=== PATIENT | female | born 1995 | race African-American/Black ===

== ENCOUNTER 2022-05-11 08:05 | Emergency (ER) | payer MEDICAID, OTHER ==
[~2022-05-11] VITALS: Ht 170.2 cm; Wt 65.3 kg
[2022-05-11 08:57] VITALS: BP 114/60
[2022-05-11] MEDS ORDERED: BENZ100C19 PO (10:18)
[2022-05-11] MEDS ORDERED: LEVOTAB51 PO (10:18)
== END 2022-05-11 10:27 | disposition home or self-care (01) ==
LOC: ER 08:05
DX: T78.40XA Allergy, unspecified, initial encounter (principal); R07.89 Other chest pain; Z20.822 Contact with and (suspected) exposure to COVID-19; Y92.89 Other specified places as the place of occurrence of the external cause
CPT/HCPCS: 36415; 71046; 87426

== ENCOUNTER → 2023-09-29 | Outpatient (CLI) | payer MEDICAID ==
[~2023-09-29] MED LIST: BENZ100C19 PO; LEVOTAB51 PO
== END | disposition home or self-care (01) ==
LOC: LAB 09:16
PROVIDERS: ATTEND Obstetrics & Gynecology
DX: Z34.80 Encounter for supervision of other normal pregnancy, unspecified trimester (principal); Z3A.00 Weeks of gestation of pregnancy not specified
CPT/HCPCS: 36415; 84439; 84443; 86850; 86900; 86901

== ENCOUNTER 2023-12-06 18:12 | Observation (INO) | payer MEDICAID ==
[~2023-12-06] VITALS: Ht 170.2 cm; Wt 81.6 kg
[2023-12-06 19:21] LABS: Urine Bacteria None Seen /hpf (None Seen)
[2023-12-06 19:51] LABS: Urine Blood Negative /uL (Negative); Urine Clarity Clear (Clear); Urine Color Light-Yellow (Yellow); Urine Mucus FEW (None Seen); Urine Protein, UAD Negative (Negative); Urine Specific Gravity 1.019 (1.001-1.035); Urine Urobilinogen 3 mg/dL (Negative); Urine WBC 3 /hpf (0 - 5)
[2023-12-06 19:53] LABS: Basophils # (auto) 0 10 ^3/uL (0-0.2); Basophils % (auto) 0.3 % (0.0-2.0); Eosinophils # (auto) 0.1 10 ^3/uL (0-0.8); Hematocrit 28.9 % (36.0-46.0); Hemoglobin 9.7 g/dL (12.2-16.2); Lymphocytes # (auto) 1.8 10 ^3/uL (0.4-5.4); Lymphocytes % (auto) 28.4 % (10.0-50.0); Mean Corpuscular Hemoglobin 26.9 pg (28.0-32.0); Mean Corpuscular Hgb Conc. 33.5 g/dL (32.0-36.0); Mean Corpuscular Volume 80.2 fL (80.0-100.0); Monocytes # (auto) 0.6 10 ^3/uL (0-1.3); Neutrophils # (auto) 3.8 10 ^3/uL (1.6-8.6); Neutrophils % (auto) 60.3 % (37.0-80.0); Nucleated Red Blood Cells % 0.1 %; Platelet Count (auto) 230 10^3/uL (140-450); Red Blood Cells 3.61 10^6/uL (4.0-5.20); Red Cell Distribution Width 14.4 % (11.8-14.3); White Blood Cell 6.3 10^3/uL (4.4-10.8)
[2023-12-06 20:01] LABS: Protein, Urine 15.4 mg/dL (1-14)
[2023-12-06 20:02] LABS: Vaginal Bacteria Few; Vaginal Clue Cells None Seen; Vaginal Epithelial Cells Moderate; Vaginal Trichomonas Not Present
[2023-12-06 20:04] LABS: Creatinine, Urine 95.91 mg/dL (30.0-125.0); Urine Protein/Creatinine Ratio 0.16
[2023-12-06 20:08] LABS: Albumin 3.8 g/dL (3.2-4.8); Alkaline Phosphatase 59 U/L (46-116); Anion Gap 8 (5-15); Aspartate Aminotransferase 9 U/L (13-40); BUN/Creatinine Ratio 11.8 (10.0-20.0); Blood Urea Nitrogen 8 mg/dL (9-23); Calcium 9.8 mg/dL (8.7-10.4); Carbon Dioxide 24 mmol/L (20-31); Chloride 106 mmol/L (98-107); Glucose 78 mg/dL (74-106); Potassium 3.8 mmol/L (3.5-5.1); Sodium 138 mmol/L (136-145)
[2023-12-06 20:09] LABS: Alanine Aminotransferase < 9 U/L (7-40); Bilirubin, Total 0.5 mg/dL (0.2-1.0); Total Protein 6.5 g/dL (5.7-8.2)
[2023-12-06] MEDS ORDERED: ASPI1TAB20 PO (20:43)
[2023-12-06] MEDS: NALBUPHINE HCL 10 MG/1ml INJECTION IV ONE (22:56)
[2023-12-06] MEDS: LACTATED RINGER'S 1,000 ML IV ONE ×2 (22:57→23:20)
[2023-12-06 23:56] VITALS: BP 108/59; PULSE 84; RESP 16
== END 2023-12-07 03:31 | disposition home or self-care (01) ==
LOC: LDRP 18:12
PROVIDERS: ADMIT Obstetrics & Gynecology; ATTEND Obstetrics & Gynecology
DX: O99.891 Other specified diseases and conditions complicating pregnancy (principal); N13.2 Hydronephrosis with renal and ureteral calculous obstruction; O99.013 Anemia complicating pregnancy, third trimester; D50.9 Iron deficiency anemia, unspecified; O26.893 Other specified pregnancy related conditions, third trimester; R51.9 Headache, unspecified; Z3A.28 28 weeks gestation of pregnancy
CPT/HCPCS: 36415; 59025; 76700; 76815; 80053; 81001; 81002; 82570; 84156; 84550; 85025; 87210; 94760; 96360; 96361; 96374; J2300

== ENCOUNTER 2024-01-20 16:59 | Observation (INO) | payer MEDICAID ==
[~2024-01-20 16:59] MED LIST changes: +ASPI1TAB20 PO; -BENZ100C19 PO; -LEVOTAB51 PO
[2024-01-20] MEDS ORDERED: PREN-96 PO (17:17)
[2024-01-20] MEDS ORDERED: FERR-7 PO (17:17)
--- NOTE | 2024-01-20 19:46 | DVHDS2 ---
Physician Discharge Progress N Final Diagnosis: IUP 35 wk, false labor Nephrolithiasis Operations or Procedures: Operations or Procedures NST Commentary: Commentary Labor check, not in labor Condition on Discharge: Stable Disposition: Home Discharge Instructions: Diet: Regular Activity: No Restrictions, As Tolerated Follow Up/Referral: as scheduled Medications: N/A Follow Up Care: Discharge Statement: "Patient was advised to return to the ER or call 911 if any headaches, dizziness, shortness of breath, chest pain, abdominal pain, bleeding, fevers, or worsening of medical condition. Patient was counseled about treatment plan, medications, possible side effects, patientverbalized understanding. All questions were answered to the best of my ability. This discharge took greater then 30 minutes in planning, reviewing documentation, counseling the patient, and discussing with other team members." LEON DYE DO Jan 20, 2024 19:46
== END 2024-01-20 17:55 | disposition home or self-care (01) ==
LOC: LDRP 16:59
PROVIDERS: ADMIT Obstetrics & Gynecology; ATTEND Obstetrics & Gynecology
DX: O47.03 False labor before 37 completed weeks of gestation, third trimester (principal); O26.833 Pregnancy related renal disease, third trimester; N20.0 Calculus of kidney; Z3A.35 35 weeks gestation of pregnancy; Z79.899 Other long term (current) drug therapy; Z98.890 Other specified postprocedural states
CPT/HCPCS: 59025; 81002; 94760; G0378

== ENCOUNTER → 2024-01-25 | Outpatient (CLI) | payer MEDICAID ==
[~2024-01-25] MED LIST changes: +FERR-7 PO; +PREN-96 PO
[2024-01-25 14:31] LABS: Basophils # (auto) 0 10 ^3/uL (0-0.2); Basophils % (auto) 0.2 % (0.0-2.0); Eosinophils # (auto) 0.1 10 ^3/uL (0-0.8); Eosinophils % (auto) 1.4 % (0.0-7.0); Hematocrit 33.2 % (36.0-46.0); Hemoglobin 11.2 g/dL (12.2-16.2); Lymphocytes # (auto) 1.7 10 ^3/uL (0.4-5.4); Lymphocytes % (auto) 23.4 % (10.0-50.0); Mean Corpuscular Hemoglobin 26.9 pg (28.0-32.0); Mean Corpuscular Hgb Conc. 33.6 g/dL (32.0-36.0); Mean Corpuscular Volume 80.1 fL (80.0-100.0); Monocytes # (auto) 0.5 10 ^3/uL (0-1.3); Monocytes % (auto) 7.4 % (0.0-12.0); Neutrophils # (auto) 4.8 10 ^3/uL (1.6-8.6); Neutrophils % (auto) 67.6 % (37.0-80.0); Nucleated Red Blood Cells % 0.3 %; Platelet Count (auto) 252 10^3/uL (140-450); Red Blood Cells 4.15 10^6/uL (4.0-5.20); Red Cell Distribution Width 17.7 % (11.8-14.3); White Blood Cell 7.1 10^3/uL (4.4-10.8)
[2024-01-25 14:35] LABS: Wright Stain Ready for Review
[2024-01-25 14:51] LABS: Folate (Folic Acid) 17.44 ng/mL (>5.38)
== END | disposition home or self-care (01) ==
LOC: LAB 13:57
PROVIDERS: ATTEND Obstetrics & Gynecology
DX: Z34.80 Encounter for supervision of other normal pregnancy, unspecified trimester (principal); Z3A.00 Weeks of gestation of pregnancy not specified
CPT/HCPCS: 36415; 82607; 82668; 82746; 83540; 85025; 85045

== ENCOUNTER 2024-02-02 20:36 | Observation (INO) | payer MEDICAID ==
[~2024-02-02] VITALS: Ht 170.2 cm; Wt 90.7 kg
--- NOTE | 2024-02-03 01:01 | DVHDS2 ---
Physician Discharge Progress N Final Diagnosis: IUP att 37weeks Not In Labor Other Interventions Other Interventions S: 28yo G7,5015 with IUP at 37w 0d presents to [facility] with report of contractions that started 30mins ago Reports normal movements, no LOF, or vaginal bleeding, no VALLEJO or vision changes. O: PE: A&O x3, NAD, well groomed. pleasant. Appropriate and normal mood and affect Afebrile, VSS Respiration unlabored Heart and lungs sounds: normal Abdomen: Gravid, non-tender to palpation. Cephalic presentation Extremities: No edema VE: 2/40%/-3 posterior, medium in consistency; no cervical change in 2 hours after one hour of ambulation UA: Normal; Neg for nitrites and leukocyte UC: irregular, mild to palpation FHR baseline 140bpm with moderate variability and accelerations, no deceleration A: IUP @ 37w Not In labor Category 1 P: Discharge home Reviewed [facility], 3rd trimester emergency signs and symptoms; return to hospital if any Condition on Discharge: Stable Disposition: Home Discharge Instructions: Diet: Regular Activity: No Restrictions, As Tolerated Medications: None Follow Up Care: Discharge Statement: "Patient was advised to return to the ER or call 911 if any headaches, dizziness, shortness of breath, chest pain, abdominal pain, bleeding, fevers, or worsening of medical condition. Patient was counseled about treatment plan, medications, possible side effects, patientverbalized understanding. All questions were answered to the best of my ability. This discharge took greater then 30 minutes in planning, reviewing documentation, counseling the patient, and discussing with other team members." TORO SCHULTZ CNM Feb 03, 2024 01:01
== END 2024-02-02 23:52 | disposition home or self-care (01) ==
LOC: LDRP 20:36
PROVIDERS: ADMIT Obstetrics & Gynecology; ATTEND Obstetrics & Gynecology
DX: O62.9 Abnormality of forces of labor, unspecified (principal); Z3A.37 37 weeks gestation of pregnancy; Z79.899 Other long term (current) drug therapy; Z98.890 Other specified postprocedural states
CPT/HCPCS: 59025; 81002; 94760; G0378

== ENCOUNTER 2024-02-17 04:06 | Observation (INO) | payer MEDICAID ==
[~2024-02-17] VITALS: Ht 170.2 cm; Wt 92.1 kg
--- NOTE | 2024-02-18 00:34 | DVHDS2 ---
Physician Discharge Progress N Final Diagnosis: Term , false labor Operations or Procedures: Operations or Procedures NST Commentary: Commentary Labor check, cervix 2cm not in active labor NST reactive, FHR Category 1 Condition on Discharge: Stable Disposition: Home Discharge Instructions: Diet: Regular Activity: No Restrictions, As Tolerated Follow Up/Referral: Return to [facility] tomorrow morning per Dr. Dye. Medications: Take all prescribed medications as directed. Follow Up Care: Discharge Statement: "Patient was advised to return to the ER or call 911 if any headaches, dizziness, shortness of breath, chest pain, abdominal pain, bleeding, fevers, or worsening of medical condition. Patient was counseled about treatment plan, medications, possible side effects, patientverbalized understanding. All questions were answered to the best of my ability. This discharge took greater then 30 minutes in planning, reviewing documentation, counseling the patient, and discussing with other team members." LEON DYE DO Feb 18, 2024 00:34
== END 2024-02-17 21:17 | disposition home or self-care (01) ==
LOC: LDRP 19:23
PROVIDERS: ADMIT Obstetrics & Gynecology; ATTEND Obstetrics & Gynecology
DX: O47.9 False labor, unspecified (principal); Z3A.35 35 weeks gestation of pregnancy; Z79.899 Other long term (current) drug therapy; Z98.890 Other specified postprocedural states
CPT/HCPCS: 59025; 81002; 94760; G0378

== ENCOUNTER 2024-02-18 07:28 | Inpatient (IN) | payer MEDICAID ==
[~2024-02-18] VITALS: Ht 170.2 cm; Wt 92.1 kg
[2024-02-18] MEDS ORDERED: BUTORPHANOL TARTRATE 2 MG/1 ML VIAL IV PRN ×2 (07:45)
[2024-02-18] MEDS ORDERED: LACTATED RINGER'S 1,000 ML IV SCH (07:45)
[2024-02-18] MEDS ORDERED: LIDOCAINE 2%HCL (LOCAL ANESTH.) INJ 20ML MDV IJ ONE (07:45)
[2024-02-18 08:19] LABS: Basophils # (auto) 0 10 ^3/uL (0-0.2); Eosinophils # (auto) 0 10 ^3/uL (0-0.8); Eosinophils % (auto) 0.7 % (0.0-7.0); Lymphocytes # (auto) 1.4 10 ^3/uL (0.4-5.4); Mean Corpuscular Volume 79.7 fL (80.0-100.0); Monocytes # (auto) 0.5 10 ^3/uL (0-1.3); Neutrophils # (auto) 4.3 10 ^3/uL (1.6-8.6); Red Cell Distribution Width 17.7 % (11.8-14.3); White Blood Cell 6.2 10^3/uL (4.4-10.8)
[2024-02-18 08:22] LABS: Urine Bacteria None Seen /hpf (None Seen)
[2024-02-18 08:23] LABS: Basophils % (auto) 0.4 % (0.0-2.0); Hematocrit 31.4 % (36.0-46.0); Hemoglobin 10.5 g/dL (12.2-16.2); Lymphocytes % (auto) 22.4 % (10.0-50.0); Mean Corpuscular Hemoglobin 26.7 pg (28.0-32.0); Mean Corpuscular Hgb Conc. 33.5 g/dL (32.0-36.0); Monocytes % (auto) 7.7 % (0.0-12.0); Neutrophils % (auto) 68.8 % (37.0-80.0); Nucleated Red Blood Cells % 0.2 %; Platelet Count (auto) 268 10^3/uL (140-450); Red Blood Cells 3.95 10^6/uL (4.0-5.20)
--- NOTE | 2024-02-18 08:24 | DVHHP2 ---
OB CC & HPI Date Date of Admission: Feb 18, 2024 Patient Identification: : 6 Para: 5 EDC: Feb 23, 2024 EGA: 39.2 Chief Complaints: Reason for admission: induction of labor History of Present Complaints NOrmal , elective labor induction 39+ wk Good PNL care, uncomplicated Past Medical History Cardiac: No pertinent Hx Pulmonary: No pertinent Hx Central Nervous System: No pertinent Hx GI: No pertinent Hx Hemotology/Oncology: No pertinent Hx Hepatobiliary: No pertinent Hx Psychiatric: No pertinent Hx Musculoskeletal: No pertinent Hx Rheumotologic: No pertinent Hx Infectious Disease: No peritnent Hx ENT: No pertinent Hx Renal/: No pertinent Hx Endocrine: No pertinent Hx Dermatology: No pertinent Hx Past Surgical History: No pertinent Hx OB History OB History Care: Good Care Ultrasounds: Normal mid trimester US Obstetrical Complications: None Medical Complications: None Allergies: Coded Allergies: NO KNOWN ALLERGIES (Unverified , 05/11/22) Home Meds Active Scripts Aspirin (Aspir-81) 81 Mg Tab, 1 TAB PO DAILY, #90 TAB 3 Refills Prov:JACIEL KLINE CNM 12/06/23 Reported Medications Ferrous Sulfate (Iron) 325 Mg Tab, 325 MG PO, TAB 01/20/24 Vit W/ Ferrous Fumara ( One Daily) Daily Tab, 1 TAB PO DAILY, #90 TAB 3 Refills 01/20/24 Current Medications Current Medications Medications (Trade) Dose Ordered Sig/Helder Route PRN Reason Start Time Stop Time Status Last Admin Lactated Ringer's 1,000 ml @ 125 mls/hr Q8H IV 02/18/24 07:45 UNV Witch Nelly (Tucks) 1 pad PRN PRN TOP PERINEAL AREA DISCOMFORT 02/18/24 07:45 UNV Sodium Lauryl Sulfate (Phisoderm) 240 ml PRN PRN TOP PERINEAL AREA DISCOMFORT 02/18/24 07:45 UNV Benzocaine (Dermoplast) 1 applic PRN PRN TOP PERINEAL AREA DISCOMFORT 02/18/24 07:45 UNV Butorphanol Tartrate (Stadol Injection) 1 mg Q4HPRN PRN IV MODERATE PAIN (4-6 PAIN SCALE) 02/18/24 07:45 UNV Butorphanol Tartrate (Stadol Injection) 2 mg Q4HPRN PRN IV SEVERE PAIN (7-10 PAIN SCALE) 02/18/24 07:45 UNV Lidocaine HCl (Xylocaine) 20 ml ONCE PRN IJ PERINEAL AREA DISCOMFORT 02/18/24 07:45 UNV Family & Social History Family/Social History Blood Type: O+ Rubella: immune RPR/VDRL: Negative GBS Status: Negative HBsAG: Negative Review of Systems Constitutional: No symptom reported Ears, Nose, & Throat: No symptom reported Eyes: No symptom reported Pulmonary/Respiratory: No symptom reported Cardiovascular: No symptom reported Gastrointestinal: No symptom reported Genitourinary: No symptom reported Musculoskeletal: No symptom reported Skin: No symptom reported Psychiatric: No symptom reported Endocrine: No symptom reported Hemotologic/Lymphatic: No symptom reported OB Admission Exam Physical Exam HEENT: TMs Normal, Fontanelles Normal, Nasal Mucosa Normal, Eyes non-injected, Oropharynx Normal, PERRLA, Moist Membranes, EOMI Heart: Rhythm Normal Lungs: Clear Abdomen: Non tender Extremities: Normal Reflexes: Normal Cervical Dilatation: 3cm Effacement: Other (60) Station: -2 Membranes: Intact Heart Rate: 150's Accelerations: Accelerations Present Decelerations: No Decelerations Short Term Variability: Present Intermediate Variability: Average (6-25) Contractions on Admission: 6-10 Minutes Apart Intensity: Mild OB Plan Plan Admitting Diagnosis: Term IUP 39+ w, Elective labor Induction GBS neg Induction Methd: Misoprostol protocol Other Plan: Pitocin as needed Labor plan and delivery discussed w/ patient informed consent obtained LEON DYE DO Feb 18, 2024 08:24
[2024-02-18 08:35] LABS: Albumin 3.8 g/dL (3.2-4.8); Alkaline Phosphatase 97 U/L (46-116); Anion Gap 9 (5-15); Calcium 9.6 mg/dL (8.7-10.4); Carbon Dioxide 22 mmol/L (20-31); Glucose 84 mg/dL (74-106); INR 0.93 (0.9-1.15); Partial Thromboplastin Time 23.1 SEC (24.5-34.5); Potassium 3.5 mmol/L (3.5-5.1); Prothrombin Time 9.9 sec (9.3-11.8); Sodium 139 mmol/L (136-145)
[2024-02-18 08:36] LABS: Bilirubin, Total 0.7 mg/dL (0.2-1.0); Total Protein 6.6 g/dL (5.7-8.2)
[2024-02-18 08:41] LABS: Alanine Aminotransferase < 9 U/L (7-40); Aspartate Aminotransferase 13 U/L (13-40); BUN/Creatinine Ratio 8.2 (10.0-20.0); Blood Urea Nitrogen < 5 mg/dL (9-23); Chloride 108 mmol/L (98-107)
[2024-02-18] MEDS ORDERED: miSOPROStol 50 MCG per PRE-CUT 1/2 TAB PO PRN (08:45)
[2024-02-18 08:51] LABS: Urine Blood Negative /uL (Negative); Urine Clarity Clear (Clear); Urine Color Light-Yellow (Yellow); Urine Mucus FEW (None Seen); Urine Protein, UAD Negative (Negative); Urine Specific Gravity 1.013 (1.001-1.035); Urine Urobilinogen Normal (Negative); Urine WBC 1 /hpf (0 - 5); Urine pH 6.5 (5.0-9.0)
[2024-02-18 09:00] LABS: Amphetamine Screen, Urine Neg (NEGATIVE); Barbiturate Scree,Urine Neg (NEGATIVE); Benzodiazephine Screen, Urine Neg (NEGATIVE); Cannabinoid Screen, Urine Neg (NEGATIVE); Cocaine Screen, Urine Neg (NEGATIVE); Opiate Scree,Urine Neg (NEGATIVE); Phencyclidine Screen, Urine Neg (NEGATIVE)
[2024-02-18] MEDS: LACT. RINGERS/OXYTOCIN 20UNITS 1,000 ML IV SCH (10:47)
[2024-02-18] MEDS: ONDANSETRON HCL 4 MG/2 ML VIAL IV PRN (12:31)
[2024-02-18] MEDS: NALBUPHINE HCL 10 MG/1ml INJECTION IV PRN (12:32)
--- NOTE | 2024-02-18 16:50 | LDN2 ---
Labor and Delivery Note Date 02/18/24 Age 28 6 Para 6 EGA Term Diagnosis Term , delivered s/p induction of labor Vaginal Delivery: VTX Vacuum Assisted: No Placenta: Spontaneous Sex: Female Weight Pending Apgars 8/9 Amniotic Fluid: Meconium Stained, Thin Anesthesia None Episiotomy: No Repaired with N/A no lacerations EBL 50 mL Labs Blood Bank 02/18/24 08:00: Blood Type O POSITIVE Complications None Comments/Significant Med Chava uncomplicated LEON DYE DO Feb 18, 2024 16:50
[2024-02-18] MEDS: LACT. RINGERS/OXYTOCIN 20UNITS 500 ML IV ONE ×2 (18:02→18:03)
[2024-02-18] MEDS: IBUPROFEN 600 MG TAB PO PRN (18:42)
[2024-02-18] MEDS: ACETAMINOPHEN 325 MG TAB PO PRN (18:43)
[2024-02-18 19:20] VITALS: BP 112/58; PULSE 87; RESP 16; TEMP 97.9; O2SAT 95
[2024-02-18] MEDS ORDERED: HYDROcodone-ACET 5/325MG TAB PO PRN (20:30)
[2024-02-18] MEDS: HYDROcodone-ACET 5/325MG TAB PO PRN (21:06)
[2024-02-18 23:00] VITALS: BP 108/58; PULSE 85; RESP 14; TEMP 98; O2SAT 98
[2024-02-19] MEDS: WITCH HAZEL-GLYCERIN PAD TOP PRN (01:31)
[2024-02-19] MEDS: PHISODERM TOP SOLN 240ML BTL TOP PRN (01:31)
[2024-02-19] MEDS: DERMOPLAST 60ML BOTTLE TOP PRN (01:31)
[2024-02-19 03:30] VITALS: BP 118/62; PULSE 83; RESP 14; TEMP 98; O2SAT 98
[2024-02-19 07:00] VITALS: BP 115/66; PULSE 94; RESP 20; TEMP 98.1; O2SAT 99
--- NOTE | 2024-02-19 07:07 | DVHPN2 ---
Progress Note Date Seen: Feb 19, 2024 Subjective PPD#1 s/p , no complications Denies any pain, lochia mild. well vital signs Vital Sign Date Time Temp Pulse Resp B/P (MAP) Pulse Ox O2 Delivery O2 Flow Rate FiO2 02/19/24 03:30 98.0 83 14 118/62 (80) 98 98.0 Total Intake and Output 02/18/24 02/18/24 02/19/24 15:00 23:00 07:00 Output Total 300 ml 300 ml Balance -300 ml -300 ml medications Current Medications Medications Dose Ordered Sig/Helder Route Start Time Stop Time Status Last Admin Dose Admin Lactated Ringer's 1,000 ml @ 125 mls/hr Q8H IV 02/18/24 07:45 Janneth Villegas 1 pad PRN PRN TOP 02/18/24 07:45 02/19/24 01:31 1 PAD Sodium Lauryl Sulfate 240 ml PRN PRN TOP 02/18/24 07:45 02/19/24 01:31 240 ML Benzocaine 1 applic PRN PRN TOP 02/18/24 07:45 02/19/24 01:31 1 APPLIC Oxytocin 1,000 ml @ 6 ml/hr Q24H IV 02/18/24 08:45 02/18/24 10:47 6 ML/HR Ondansetron HCl 4 mg Q4HPRN PRN IV 02/18/24 12:15 02/18/24 12:31 4 MG Ibuprofen 600 mg Q6HP PRN PO 02/18/24 17:00 02/18/24 18:42 600 MG Acetaminophen 650 mg Q4HP PRN PO 02/18/24 17:00 02/18/24 18:43 650 MG Acetaminophen/ Hydrocodone Bitart 1 tab Q4HPRN PRN PO 02/18/24 20:30 Acetaminophen/ Hydrocodone Bitart 2 tab Q4HPRN PRN PO 02/18/24 20:30 02/19/24 01:32 2 TAB laboratory and microbiology Laboratory Tests 02/18/24 08:00 Test 02/18/24 08:00 Range/Units Serum Glucose 84 74-106 mg/dL Objective O: AFVSS Chest: heart and lung sounds normal. Abd soft, non-tender, fundus firm, BS, no rebound or guarding, Ext Neg Homans, Non-tender, edema Lochia - minimal Labs Reviewed Assessment/Plan PPD#1 s/p , uncomplicated Continue current care D/C planning Plan discussed with: Patient LEON DYE DO Feb 19, 2024 07:07
[2024-02-19] MEDS ORDERED: IBU600T PO (07:08)
--- NOTE | 2024-02-19 07:09 | DVHDS2 ---
Physician Discharge Progress N Final Diagnosis: Term , delivered, uncomplicated Operations or Procedures: Operations or Procedures Induction of labor with uncomplicated Commentary: Commentary Normal labor and delivery Normal course Condition on Discharge: Stable Disposition: Home Discharge Instructions: Diet: Regular Activity: Light activity Activity comment: Pelvic rest x 6 weeks Follow Up/Referral: 2 wk OB clinic Medications: Ibuprofen, Iron BID Follow Up Care: Discharge Statement: "Patient was advised to return to the ER or call 911 if any headaches, dizziness, shortness of breath, chest pain, abdominal pain, bleeding, fevers, or worsening of medical condition. Patient was counseled about treatment plan, medications, possible side effects, patientverbalized understanding. All questions were answered to the best of my ability. This discharge took greater then 30 minutes in planning, reviewing documentation, counseling the patient, and discussing with other team members." LEON DYE DO Feb 19, 2024 07:09
[2024-02-19 11:00] VITALS: BP 109/56; PULSE 91; RESP 12; TEMP 98.7; O2SAT 98
[2024-02-19 15:30] VITALS: BP 107/56; PULSE 83; RESP 18; TEMP 98.1; O2SAT 97
[2024-02-20 08:06] LABS: RPR Non Reactive (Non Reactive)
[2024-02-21 07:07] LABS: Treponema Pallidum Ab LC Non Reactive (Non Reactive)
== END 2024-02-19 17:45 | disposition home or self-care (01) | DRG 560 ==
LOC: LDRP 07:28
PROVIDERS: ADMIT Obstetrics & Gynecology; ATTEND Obstetrics & Gynecology
PROC: 10E0XZZ Delivery of Products of Conception, External Approach (ICD-10-PCS; principal; 2024-02-18)
DX: O77.0 Labor and delivery complicated by meconium in amniotic fluid (principal); Z37.0 Single live birth; Z3A.39 39 weeks gestation of pregnancy
CPT/HCPCS: 36415; 59409; 80053; 80307; 81001; 85025; 85610; 85730; 86592; 86780; 86803; 86850; 86900; 86901; 94760; 96360; 96361; 96365; 96366; 96374; 96375; G0378; J2405; J2590

== ENCOUNTER 2025-02-27 08:39 | Emergency (ER) | payer MEDICAID ==
[~2025-02-27] VITALS: Ht 170.2 cm; Wt 77.8 kg
[~2025-02-27 08:39] MED LIST changes: -ASPI1TAB20 PO; +IBU600T PO
--- NOTE | 2025-02-27 08:56 | ED.PDOC ---
HAND REAMER HPI Comments A 29 YEAR OLD FEMALE PRESENTS TO THE ED WITH COMPLAINT OF VAGINAL DISCHARGE. PATIENT STATES SHE HAS BEEN EXPERIENCING VAGINAL DISCHARGE THAT IS WHITE IN COLOR FOR THE PAST 2 DAYS. PATIENT REPORTS SHE HAS ALSO HAD MILD DISCOMFORT WHEN URINATING. PATIENT DENIES HEMATURIA, FLANK PAIN, FEVER, CHILLS, SHORTNESS OF BREATH, CHEST PAIN, ABDOMINAL PAIN, NAUSEA, VOMITING, HEADACHE, OR OTHER COMPLAINTS. NO OTHER SYMPTOMS OR MODIFYING FACTORS AT THIS TIME. PATIENT IS ALERT, ORIENTED X 4, AND HAS STEADY GAIT. Chief Complaint: Vaginal Discharge Time Seen by MD: 08:44 Reviewed Notes: Nurses Notes, Medications, Allergies Allergies: Coded Allergies: NO KNOWN ALLERGIES (Unverified , 05/11/22) Home Meds Active Scripts Doxycycline (Monohydrate) (Doxycycline) 100 Mg Cap, 100 MG PO BID, #20 CAP Prov:CLAUDIA TOVAR 02/27/25 Metronidazole (Flagyl) 500 Mg Tab, 1 TAB PO TID, #21 TAB Prov:CLAUDIA TOVAR 02/27/25 Ibuprofen Micronized (MOTRIN TABLET) 600 Mg Tb, 600 MG PO Q6HP PRN, #30 TAB Prov:LEON DYE DO 02/19/24 Reported Medications Ferrous Sulfate (Iron) 325 Mg Tab, 325 MG PO, TAB 01/20/24 Vit W/ Ferrous Fumara ( One Daily) Daily Tab, 1 TAB PO DAILY, #90 TAB 3 Refills 01/20/24 Information Source: Patient Mode of Arrival: Ambulatory Timing: Days Prehospital treatment: None Severity: Moderate Vaginal Discharge: White Vaginal Lesions: None Vaginal Mass: None Onset Of Mass/Bleeding: Spontaneous Sexual Activity: Sexually Active Control: None Blood Type: Unknown Symptoms of Possible : None Associated Signs and Symptoms: Vaginal Discharge Past Medical History PAST MEDICAL HISTORY: Denies Surgical History: Denies all surgeries AUTOMATIC TOE LASTER History: No Pertinent AUTOMATIC TOE LASTER History Family History Family History: Reviewed,noncontributory to illness, No family hx of Cancer, No family hx of DM, No family hx of Heart diogo, No family hx of HTN, No family hx ofKidney diogo, No family hx of Liver diogo, No family hx of Lung diogo, No family hx of Stroke Social History Smoker: Non-Smoker Alcohol: Denies ETOH Use Drugs: Denies Drug Use Lives In: Home Constitutional: denies: chills, diaphoresis, fatigue, fever, malaise, sweats, weakness, others EENTM: denies: blurred vision, double vision, ear bleeding, ear discharge, ear drainage, ear pain, ear ringing, eye pain, eye redness, hearing loss, mouth pain, mouth swelling, nasal discharge, nose bleeding, nose congestion, nose pain, photophobia, tearing, throat pain, throat swelling, voice changes, others Respiratory: denies: cough, hemoptysis, orthopnea, SOB at rest, shortness of breath, SOB with excertion, stridor, wheezing, others Cardiovascular: denies: chest pain, dizzy spells, diaphoresis, Dyspnea on exertion, edema, irregular heart beat, left arm pain, lightheadedness, palpitations, PND, syncope, others Gastrointestinal: denies: abdomen distended, abdominal pain, blood streaked bowels, constipated, diarrhea, dysphagia, difficulty swallowing, hematemesis, melena, nausea, poor appetite, poor fluid intake, rectal bleeding, rectal pain, vomiting, others Genitourinary: reports: vagina discharge; denies: abnormal vagina bleeding, burning, dyspareunia, dysuria, flank pain, frequency, hematuria, incontinence, pain, , urgency, others Neurological: denies: dizziness, fainting, headache, left sided numbness, left sided weakness, numbness, paresthesia, pre-existing deficit, right sided numbness, right sided weakness, seizure, speech problems, tingling, tremors, weakness, others Musculoskeletal: denies: back pain, gout, joint pain, joint swelling, muscle pain, muscle stiffness, neck pain, others Integumetry: denies: bruises, change in color, change in hair/nails, dryness, laceration, lesions, lumps, rash, wounds, others Allergic/Immunocompromised: denies: Difficulty Healing, Frequent Infections, Hives, Itching, others Hematologic/Lymphatic: denies: anemia, blood clots, easy bleeding, easy bruising, swollen glands, others Endocrine: denies: excessive hunger, excessive sweating, excessive thirst, excessive urination, flushing, intolerance to cold, intolerance to heat, unexplained weight gain, unexplained weight loss, others Psychiatric: denies: anxiety, bipolar disorder, depression, hopeless, panic disorder, schizophrenia, sleepless, suicidal, others All Other Systems: Reviewed and Negative Physical Exam General Appearance: No Apparent Distress, Normal HEENT: Normal ENT Inspection, PERRL/EOMI, Pharynx Normal, TMs Normal Neck: Full Range of Motion, Non-Tender, Normal, Normal Inspection Respiratory: Chest Non-Tender, Lungs Clear, No Accessory Muscle Use, No Respiratory Distress, Normal Breath Sounds Cardiovascular: No Edema, No JVD, No Murmur, No Gallop, Normal Peripheral Pulses, Regular Rate/Rhythm Breast Exam: Deferred Gastrointestinal: No Organomegaly, Non Tender, No Pulsatile Mass, Normal Bowel Sounds, Soft Genitalia: Deferred Pelvic: Discharge (WHITE AND YELLOW VAGINAL DISCHARGE, NO VAGINAL SKIN RASH AND OPEN WOUND. ), Normal External Exam Rectal: Deferred Extremities: No calf tenderness, Normal capillary refill, Normal inspection, Normal range of motion, Non-tender, No pedal edema Musculoskeletal : Apperance: Normal Neurologic: Alert, vendor management associate II-XII nml as Tested, No Motor Deficits, Normal Affect, Normal Mood, No Sensory Deficits Cerebellar Function: Normal Reflexes: Normal Skin: Dry, Normal Color, Warm Peripheral Pulses: 2+ carotid (R), 2+ carotid (L) Lymphatic: No Adenopathy Was a procedure done? Was a procedure done?: No Differential Diagnosis (AUTOMATIC TOE LASTER) Vaginal Bleeding: UTI, Vaginitis, N/A Mass / Lesion: N/A Vaginal Discharge: UTI, Vaginitis - Bacterial, Vaginitis - Candidal, Vaginitis - Trichomonas X-Ray, Labs, Meds, VS Vital Signs Date Time Temp Pulse Resp B/P (MAP) Pulse Ox O2 Delivery O2 Flow Rate FiO2 02/27/25 08:41 98.1 90 18 119/61 98 98.1 Lab Test 02/27/25 08:54 02/27/25 08:49 Range/Units Urine Color Yellow Yellow Urine Clarity Hazy H Clear Urine pH 6.0 5.0-9.0 Urine Specific [place] 1.030 1.001-1.035 Urine Protein 1+ H Negative Urine Ketones Negative Negative Urine Blood Trace H Negative /uL Urine Nitrite Negative Negative Urine Bilirubin Negative Negative Urine Urobilinogen Normal Negative mg/dL Urine Leukocyte Esterase 3+ Negative /uL Urine RBC 68 0 - 4 /hpf Urine Microscopic WBC 48 H 0-5 /HPF Urine Squamous Epithelial Cells Mod <5 /hpf Urine Bacteria Few H None Seen /hpf Urine Mucus Few None Seen Urine Glucose Normal Normal mg/dL Chlamydia trachomatis (KATHY) Pending Neisseria gonorrhoeae (KATHY) Pending Vaginal WBC (Wet Prep) Many Vaginal RBC (Wet Prep) Few Vaginal Epithelial Cells (Wet Prep) Moderate Vaginal Bacteria (Wet Prep) Moderate Vaginal Trichomonas (Wet Prep) Present Vaginal Yeast (Wet Prep) None seen Vaginal Clue Cells (Wet Prep) None seen Current Medications Medications (Trade) Dose Ordered Sig/Helder Route Start Time Stop Time Status Last Admin Ceftriaxone Sodium (Rocephin) 1,000 mg ONCE ONCE IM 02/27/25 09:30 02/27/25 09:31 DC 02/27/25 09:44 X-Ray, Labs, Meds, VS Comment EXTERNAL MEDICAL RECORDS REVIEWED: [NONE] INDEPENDENT HISTORIANS: [NONE] SOCIAL DETERMINANTS OF HEALTH: [NONE] LABS ORDERED: UA, WET MOUNT REVIEWED AND INTERPRETED RESULTS: WM WBC BENDING, WM BACTERIA MODERATE, TRICHOMONAS PRESENT, LEUKOCYTES 3+ IMAGING ORDERED: NONE TREATMENTS ORDERED: ROCEPHIN 1G IM PROCEDURES PERFORMED: NONE CRITICAL CARE TIME: NONE I HAVE DISCUSSED THE PATIENT WITH THE ATTENDING PHYSICIAN DR. KELLOGG AND HE AGREES WITH THE PATIENT'S PLAN OF CARE AND DISPOSITION. BASED ON HISTORY OF PRESENT ILLNESS, AND PHYSICAL EXAM, PATIENT WILL BE DISCHARGED HOME. DISCUSSED PLAN FOR DISCHARGE HOME WITH RX [DOXYCYCLINE AND FLAGYL 500MG]. MEDICATION WARNINGS GIVEN. SHARED DECISION MAKING: PATIENT INSTRUCTED TO FOLLOW UP WITH PRIMARY CARE PROVIDER IN 1-2 DAYS FOR RE-EVALUATION OF SYMPTOMS. PATIENT VERBALIZES UNDE RSTANDING TO RETURN TO ED FOR NEW OR WORSENING SYMPTOMS OR IF FOLLOW UP WITH PCP CANNOT BE OBTAINED. PATIENT FEELS COMFORTABLE GOING HOME AT THIS TIME. ALL QUESTIONS ADDRESSED AT TIME OF DISCHARGE. Time of 1ST Reevaluation: 10:00 Reevaluation 1ST: Improved Patient Education/Counseling: Diagnosis, Treatment, Need For Follow Up Family Education/Counseling: Diagnosis, Treatment, Need For Follow Up Medical Screening: No EMC Exist At This Time Departure 1 Departure Time of Disposition: 10:00 Impression: Primary Impression: Trichomonas vaginitis Additional Impressions: Acute UTI (urinary tract infection) Screening for STDs (sexually transmitted diseases) Disposition: 01 HOME / SELF CARE / HOMELESS Condition: Stable Additional Instructions: FOLLOW-UP WITH PCP IN 1 TO 2 DAYS. TAKE MEDICATIONS PRESCRIBED. RETURN TO ED FOR ANY NEW OR WORSENING SYMPTOMS. e-Prescriptions Doxycycline (Monohydrate) (Doxycycline) 100 Mg Cap 100 MG PO BID, #20 CAP Prov: CLAUDIA TOVAR 02/27/25 Metronidazole (Flagyl) 500 Mg Tab 1 TAB PO TID, #21 TAB Prov: CLAUDIA TOVAR 02/27/25 Discharged With: Self Critical Care Note Critical Care Time?: No Stability Stability form required: No I personally scribed for CLAUDIA TOVAR ([email or web address]) on 02/27/25 at 08:56. Electronically submitted by Yoshi Pemberton ([email or web address]). I personally scribed for CLAUDIA TOVAR ([email or web address]) on 02/27/25 at 09:29. Electronically submitted by Yoshi Pemberton ([email or web address]). CLAUIDA TOVAR Feb 27, 2025 08:56
[2025-02-27 09:12] LABS: Vaginal Bacteria Moderate; Vaginal Trichomonas Present
[2025-02-27 09:13] LABS: Vaginal Epithelial Cells Moderate
[2025-02-27 09:17] LABS: Vaginal Clue Cells None Seen
[2025-02-27 09:26] LABS: Urine Protein, UAD 1+ (Negative)
[2025-02-27] MEDS: cefTRIAXone SOD 1,000 MG VL IM ONE (09:44)
[2025-02-27] MEDS ORDERED: METR-344 PO (09:48)
[2025-02-27] MEDS ORDERED: DOXY1CAP58 PO (09:48)
[2025-02-27 09:52] VITALS: BP 128/64; PULSE 64; RESP 16; TEMP 98.2; O2SAT 97
== END 2025-02-27 09:54 | disposition home or self-care (01) ==
LOC: ER 08:39
DX: A59.01 Trichomonal vulvovaginitis (principal); N39.0 Urinary tract infection, site not specified; Z11.3 Encounter for screening for infections with a predominantly sexual mode of transmission
CPT/HCPCS: 81001; 87210; 96372; 99283; J0696